=== PATIENT | female | born 1985 | race African-American/Black ===

== ENCOUNTER 2017-12-09 04:26 | Emergency (ER) | payer SELFPAY ==
[~2017-12-09] VITALS: Ht 162.6 cm; Wt 91.0 kg
[2017-12-09 06:54] LABS: BASOPHILS % 0.7 % (0.0-2.0); EOSINOPHILS % 2.4 % (0.0-5.0); HEMATOCRIT. 35.8 % (36.0-48.0); HEMOGLOBIN. 11.8 g/dL (12.0-16.0); LYMPHOCYTES % 33.2 % (20.0-50.0); MEAN CORPUSCULAR VOLUME 82.1 fL (81.0-99.0); MEAN PLATELET VOLUME 8.7 fl (7.4-10.4); MONOCYTES % 7.4 % (2.0-8.0); NEUTROPHILS % 56.3 % (40.0-76.0); PLATELET 185 x1000/uL (130-400); RED BLOOD CELL COUNT 4.36 mill/uL (4.2-5.4); RED CELL DISTRIBUTION WIDTH 15.6 % (11.6-14.6)
[2017-12-09 06:57] LABS: CHLORIDE 107 mEq/L (98-107)
[2017-12-09 06:58] LABS: PROTHROMBIN TIME 10.4 sec (9.4-11.6)
[2017-12-09] MEDS ORDERED: DICYCLOMINE 10 MG/5 ML ORAL SYR PO STA (07:47)
[2017-12-09] MEDS ORDERED: ONDANSETRON 4MG ODT PO ONE (08:00)
[2017-12-09] MEDS ORDERED: ACETAMINOPHEN WITH CODEINE 300/30MG TABLET PO ONE (08:00)
[2017-12-09 08:19] VITALS: BP 128/76
[2017-12-09 09:10] LABS: CLARITY URINE CLEAR (CLEAR); COLOR URINE YELLOW (YELLOW); KETONES URINE NEGATIVE (NEGATIVE); LEUKOCYTE ESTERASE URINE TRACE (NEGATIVE); NITRITE URINE NEGATIVE (NEGATIVE); OCCULT BLOOD URINE 3+ (NEGATIVE); PROTEIN URINE NEGATIVE (NEGATIVE); SPECIFIC GRAVITY URINE 1.018 (1.005-1.030); UROBILINOGEN URINE 0.2 E.U./dL (0.2-1.0)
[2017-12-09 10:13] LABS: HCG SCREEN NEGATIVE
== END 2017-12-09 11:20 | disposition home or self-care (01) ==
LOC: ER 04:26
DX: S39.012A Strain of muscle, fascia and tendon of lower back, initial encounter (principal); N39.0 Urinary tract infection, site not specified; K80.20 Calculus of gallbladder without cholecystitis without obstruction; X58.XXXA Exposure to other specified factors, initial encounter; Y93.E5 Activity, floor mopping and cleaning; Y92.098 Other place in other non-institutional residence as the place of occurrence of the external cause; Y99.8 Other external cause status
CPT/HCPCS: 36415; 76700; 80053; 81003; 81025; 83690; 84703; 85025; 85610; 93005; 99285; Q0162